=== PATIENT | male | born 1945 | race Hispanic/Latino ===

== ENCOUNTER → 2022-09-01 | Outpatient (CLI) | payer OTHER ==
[~2022-09-01] VITALS: Ht 170.2 cm; Wt 80.8 kg
[~2022-09-01] MED LIST: ATOR20TA65 PO; CEFTRIAXONE 1G VIAL ONE; LACTATED RINGERS 1000ML 1,000 ML IV ONE; TAMS-1 PO
[2022-09-01 12:02] LABS: BASOPHILS % (AUTO) 0.3 % (0.0-5.0); EOSINOPHILS % (AUTO) 1.1 % (0.0-8.0); HEMATOCRIT 42.2 % (36-48); LYMPHOCYTES % (AUTO) 28.8 % (21.0-51.0); MEAN CORPUSCULAR HEMOGLOBIN 30.9 pg (27.0-33.0); MEAN CORPUSCULAR HGB CONC 34.4 g/dL (32.0-36.0); MONOCYTES % (AUTO) 8.8 % (3.0-13.0); NEUTROPHILS % (AUTO) 60.7 % (40.0-77.0); PLATELET COUNT (AUTO) 227 K/uL (130-400); RED BLOOD CELL COUNT(AUTO) 4.69 MIL/uL (4.00-5.50); RED CELL DISTRIBUTION WIDTH 13.3 % (11.0-15.5)
[2022-09-01 12:19] LABS: CREATININE 0.8 mg/dL (0.5-1.5)
[2022-09-02 08:43] VITALS: BP 171/91
[2022-09-03 07:41] VITALS: BP 155/79
== END | disposition home or self-care (01) ==
LOC: EDSEX 10:00 → DAH 10:00 → EDSTATUS 11:00 → DAH 09-03 07:00
PROVIDERS: ATTEND Urology
DX: N40.1 Benign prostatic hyperplasia with lower urinary tract symptoms (principal); Z20.822 Contact with and (suspected) exposure to COVID-19; Z53.8 Procedure and treatment not carried out for other reasons
CPT/HCPCS: 87426; 80048; 87088; 85025; 36415; A6260